=== PATIENT | male | born 1985 | race Caucasian/White ===

== ENCOUNTER 2021-03-16 08:09 | Emergency (ER) | payer BC ==
[2021-03-16 08:30] VITALS: BP 150/105; PULSE 86
--- NOTE | 2021-03-16 08:49 | EDM.PDOC ---
ED HPI GENERAL MEDICAL PROBLEM - General Chief Complaint: Abdominal Pain Stated Complaint: ABDOMINAL PAIN Time Seen by Provider: 03/16/21 08:45 Source of Information: Reports: Patient History Limitations: Reports: No Limitations - History of Present Illness INITIAL COMMENTS - FREE TEXT/NARRATIVE: pt arrived with rt cva pain. It does hurt worse when he coughes or sneezes. This has been going on for about 1 week. He is scheduled for a gastro and colonscopy for thursday. Earlier he had blood in his stool. This has stopped. Onset: Gradual Duration: Day(s): Location: Reports: Abdomen, Back Quality: Reports: Sharp Associated Symptoms: Reports: No Other Symptoms Right Lower Abdominal Pain Score (Numeric/FACES): 6 - Related Data Allergies Allergy/AdvReac Type Severity Reaction Status Date / Time No Known Allergies Allergy Verified 10/01/13 10:05 Home Meds: Home Meds Pantoprazole Sodium [Protonix] 40 mg PO BID 03/15/21 [History] Past Medical History Gastrointestinal History: Reports: Other (See Below) Other Gastrointestinal History: abd pain this admit Musculoskeletal History: Reports: Fracture, Other (See Below) Other Musculoskeletal History: broken left leg, color bone left, left arm, all fingers on both hands at different times, left foot Neurological History: Reports: Other (See Below) Other Neuro History: history of one concussion 15 years ago - Infectious Disease History Infectious Disease History: Reports: Chicken Pox - Past Surgical History GI Surgical History: Reports: Hernia, Inguinal Social & Family History - Tobacco Use Tobacco Use Status *Q: Current Every Day Tobacco User Years of Tobacco use: 15 Packs/Tins Daily: 1 ED ROS GENERAL - Review of Systems Review Of Systems: See Below Constitutional: Reports: No Symptoms HEENT: Reports: No Symptoms Respiratory: Reports: No Symptoms Cardiovascular: Reports: No Symptoms Endocrine: Reports: No Symptoms GI/Abdominal: Reports: Abdominal Pain, Other (pt had blood in the stool about 1 week ago. He did see Harlan Branham and is scheduled for a gastro and a colonoscopy for . He has continued to have mid abdomanal pain extendding from the flank area. He has no urine symptoms. ) : Reports: No Symptoms Musculoskeletal: Reports: Muscle Pain, Other (pt is very tender in the mid abdoman. 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 ) Skin: Reports: No Symptoms ED EXAM, GI/ABD - Physical Exam Exam: See Below Text/Narrative:: pt arrived with pain in the mid rt abdoman. He hurts when he moves alot worse but he does have constant pain at a 4-5. Exam Limited By: No Limitations General Appearance: Alert, Anxious, Moderate Distress Ears: Normal TMs Nose: Normal Inspection Throat/Mouth: Normal Inspection Head: Atraumatic Neck: Normal Inspection Respiratory/Chest: No Respiratory Distress Cardiovascular: Regular Rate, Rhythm GI/Abdominal Exam: Tender, Other ( pt is tender in the rt mid abdoman coming around from the flank) (Male) Exam: Deferred Rectal (Males) Exam: Deferred Back Exam: CVA Tenderness (R) Extremities: Normal Inspection Neurological: Alert, Oriented, Normal Cognition Psychiatric: Anxious Course - Vital Signs Last Recorded V/S: Last Vital Signs Temp 35.8 C L 03/16/21 08:28 Pulse 86 03/16/21 08:28 Resp 18 03/16/21 08:28 BP 150/105 H 03/16/21 08:28 Pulse Ox - Orders/Labs/Meds Orders: Active Orders 24 hr Category Date Time Status Abdomen Ltd [US] Stat Exams 03/16/21 09:32 Taken Iopamidol [Isovue-300 (61%)] Med 03/16/21 11:45 Active 150 ml IV . DIRECTED Sodium Chloride 0.9% [Normal Saline] 1,000 ml Med 03/16/21 10:15 Active IV ASDIRECTED Sodium Chloride 0.9% [Normal Saline] 80 ml Med 03/16/21 11:45 Active IV ASDIRECTED Medication Orders Sodium Chloride (Normal Saline) 1,000 mls @ 999 mls/hr IV ASDIRECTED KEYUR Last Admin: 03/16/21 10:20 Dose: 999 mls/hr Documented by: POLA Sodium Chloride (Normal Saline) 80 mls @ 3 mls/sec IV ASDIRECTED KEYUR Last Admin: 03/16/21 11:47 Dose: 3 mls/sec Documented by: EMORY Iopamidol (Iopamidol 612 Mg/Ml 150 Ml Bottle) 150 ml IV . DIRECTED KEYUR Last Admin: 03/16/21 11:48 Dose: 150 ml Documented by: EMORY Labs: Laboratory Tests 03/16/21 03/16/21 03/16/21 Range/Units 08:49 08:56 08:56 WBC 6.9 (4.5-11.0) K/uL RBC 4.72 (4.30-5.90) M/uL Hgb 15.7 H (12.0-15.0) g/dL Hct 44.4 (40.0-54.0) % MCV 94 (80-98) fL MCH 33 H (27-31) pg MCHC 35 (32-36) % Plt Count 263 (150-400) K/uL Neut % (Auto) 63.5 (36-66) % Lymph % (Auto) 24.0 (24-44) % [place] % (Auto) 9.2 H (2-6) % Eos % (Auto) 2.9 (2-4) % Baso % (Auto) 0.4 (0-1) % Sodium (140-148) mmol/L Potassium (3.6-5.2) mmol/L Chloride (100-108) mmol/L Carbon Dioxide (21-32) mmol/L Anion Gap (5.0-14.0) mmol/L BUN (7-18) mg/dL Creatinine (0.8-1.3) mg/dL Est Cr Clr Drug Dosing mL/min Estimated GFR (MDRD) (>60) Glucose (74-106) mg/dL Calcium (8.5-10.1) mg/dL Total Bilirubin (0.2-1.0) mg/dL AST (15-37) U/L ALT (12-78) U/L Alkaline Phosphatase (46-116) U/L C-Reactive Protein 0.10 (0.0-0.3) mg/dL Total Protein (6.4-8.2) g/dL Albumin (3.4-5.0) g/dL Globulin (2.3-3.5) g/dL Albumin/Globulin Ratio (1.2-2.2) Urine Color Yellow (YELLOW) Urine Appearance Clear (CLEAR) Urine pH 7.0 (5.0-8.0) Ur Specific [place] 1.025 (1.008-1.030) Urine Protein Negative (NEGATIVE) mg/dL Urine Glucose (UA) Negative (NEGATIVE) mg/dL Urine Ketones Negative (NEGATIVE) mg/dL Urine Occult Blood Negative (NEGATIVE) Urine Nitrite Negative (NEGATIVE) Urine Bilirubin Negative (NEGATIVE) Urine Urobilinogen 0.2 (0.2-1.0) EU/dL Ur Leukocyte Esterase Negative (NEGATIVE) Urine RBC Not seen (0-5) Urine WBC Not seen (0-5) Ur Epithelial Cells Occasional Amorphous Sediment Few Urine Bacteria Few Urine Mucus Few 03/16/21 Range/Units 08:56 WBC (4.5-11.0) K/uL RBC (4.30-5.90) M/uL Hgb (12.0-15.0) g/dL Hct (40.0-54.0) % MCV (80-98) fL MCH (27-31) pg MCHC (32-36) % Plt Count (150-400) K/uL Neut % (Auto) (36-66) % Lymph % (Auto) (24-44) % [place] % (Auto) (2-6) % Eos % (Auto) (2-4) % Baso % (Auto) (0-1) % Sodium 138 L (140-148) mmol/L Potassium 4.0 (3.6-5.2) mmol/L Chloride 102 (100-108) mmol/L Carbon Dioxide 24 (21-32) mmol/L Anion Gap 16.0 H (5.0-14.0) mmol/L BUN 11 (7-18) mg/dL Creatinine 0.9 (0.8-1.3) mg/dL Est Cr Clr Drug Dosing 129.47 mL/min Estimated GFR (MDRD) > 60 (>60) Glucose 103 (74-106) mg/dL Calcium 9.0 (8.5-10.1) mg/dL Total Bilirubin 0.7 (0.2-1.0) mg/dL AST 60 H D (15-37) U/L ALT 185 H (12-78) U/L Alkaline Phosphatase 93 (46-116) U/L C-Reactive Protein (0.0-0.3) mg/dL Total Protein 7.4 (6.4-8.2) g/dL Albumin 3.6 (3.4-5.0) g/dL Globulin 3.8 H (2.3-3.5) g/dL Albumin/Globulin Ratio 1.0 L (1.2-2.2) Urine Color (YELLOW) Urine Appearance (CLEAR) Urine pH (5.0-8.0) Ur Specific [place] (1.008-1.030) Urine Protein (NEGATIVE) mg/dL Urine Glucose (UA) (NEGATIVE) mg/dL Urine Ketones (NEGATIVE) mg/dL Urine Occult Blood (NEGATIVE) Urine Nitrite (NEGATIVE) Urine Bilirubin (NEGATIVE) Urine Urobilinogen (0.2-1.0) EU/dL Ur Leukocyte Esterase (NEGATIVE) Urine RBC (0-5) Urine WBC (0-5) Ur Epithelial Cells Amorphous Sediment Urine Bacteria Urine Mucus Meds: Medications Generic Name Dose Route Start Last Admin Trade Name Freq PRN Reason Stop Dose Admin Sodium Chloride 1,000 mls @ 999 mls/hr 03/16/21 10:15 03/16/21 10:20 Normal Saline IV 999 mls/hr ASDIRECTED KEYUR Administration Sodium Chloride 80 mls @ 3 mls/sec 03/16/21 11:45 03/16/21 11:47 Normal Saline IV 3 mls/sec ASDIRECTED KEYUR Administration Iopamidol 150 ml 03/16/21 11:45 03/16/21 11:48 Iopamidol 612 Mg/Ml 150 Ml Bottle IV 150 ml . DIRECTED KEYUR Administration Discontinued Medications Generic Name Dose Route Start Last Admin Trade Name Freq PRN Reason Stop Dose Admin Hydromorphone HCl 0.5 mg 03/16/21 10:09 03/16/21 10:20 Hydromorphone 0.5 Mg/0.5 Ml Syringe IVPUSH 03/16/21 10:10 0.5 mg ONETIME ONE Administration Hydromorphone HCl 0.5 mg 03/16/21 11:19 03/16/21 11:24 Hydromorphone 0.5 Mg/0.5 Ml Syringe IVPUSH 03/16/21 11:20 0.5 mg ONETIME ONE Administration Ketorolac Tromethamine 60 mg 03/16/21 09:31 03/16/21 09:38 Ketorolac 30 Mg/Ml Sdv IM 03/16/21 09:32 60 mg ONETIME ONE Administration - Re-Assessments/Exams Free Text/Narrative Re-Assessment/Exam: 03/16/21 13:04 pt had a US which showed some fatty liver chanmges. No stones in the GB. He had a cat scan of the abdoman which showed the fatty liver but no other reason for the pain Departure - Departure Time of Disposition: 12:51 Disposition: Home, Self-Care 01 Condition: Fair Clinical Impression: Abdominal muscle pain, History of GI bleed - Discharge Information Referrals: Harlan Mcclain, A[employer]IC[employer] EXTENSION EDUCATOR [Primary Care Provider] - Forms: ED Department Discharge Care Plan Goals: keep appt thursday for gastro and colonoscopy, push fluids, percocet 5/325 q6h prn for pain, follow up appt with harlan Branham Sepsis Event Note (ED) - Evaluation Sepsis Screening Result: No Definite Risk - Focused Exam Vital Signs: Vital Signs Temp Pulse Resp BP 03/16/21 08:28 35.8 C L 86 18 150/105 H - My Orders Last 24 Hours: My Active Orders 03/16/21 09:32 Abdomen Ltd [US] Stat 03/16/21 10:15 Sodium Chloride 0.9% [Normal Saline] 1,000 ml IV ASDIRECTED 03/16/21 11:45 Iopamidol [Isovue-300 (61%)] 150 ml IV . DIRECTED Sodium Chloride 0.9% [Normal Saline] 80 ml IV ASDIRECTED - Assessment/Plan Last 24 Hours: My Active Orders 03/16/21 09:32 Abdomen Ltd [US] Stat 03/16/21 10:15 Sodium Chloride 0.9% [Normal Saline] 1,000 ml IV ASDIRECTED 03/16/21 11:45 Iopamidol [Isovue-300 (61%)] 150 ml IV . DIRECTED Sodium Chloride 0.9% [Normal Saline] 80 ml IV ASDIRECTED
[2021-03-16] MEDS ORDERED: Ketorolac 30 MG/ML SDV IM ONE (09:31)
[2021-03-16] MEDS ORDERED: HYDROmorphone 0.5 MG/0.5 ML Syringe IVPUSH ONE ×2 (10:09→11:19)
[2021-03-16] MEDS ORDERED: Sodium Chloride 0.9% 1,000 ML IV SCH (10:15)
[2021-03-16] MEDS ORDERED: Iopamidol 612 MG/ML 150 ML Bottle IV SCH (11:45)
[2021-03-16] MEDS ORDERED: Sodium Chloride 0.9% 80 ML IV SCH (11:45)
--- NOTE | 2021-03-16 12:41 | CRLCT ---
For Patients: As a result of the Century Cures Act, medical imaging exams and procedure reports are released immediately into your electronic medical record. You may view this report before your referring provider. If you have questions, please contact your health care provider. INDICATION: Right-sided abdominal pain. TECHNIQUE: Volumetric helical scanning of the abdomen and pelvis was performed with 100 cc of Isovue 300 contrast material IV. Coronal and sagittal reconstructions were obtained. COMPARISON: None. FINDINGS: There is no evidence of bowel obstruction or inflammation. A normal appendix is noted. No free fluid is demonstrated. Fatty change is demonstrated in the liver. The liver is normal in size and shape. The bile ducts, spleen, adrenal glands, kidneys and pancreas are negative. No lymphadenopathy is evident. The prostate is normal. Postop changes of right inguinal herniorrhaphy are noted. The lung bases are clear, and the heart size is normal. IMPRESSION: 1. Etiology of right abdominal pain not evident. Appendix normal. 2. Fatty liver. 3. Post right inguinal herniorrhaphy. Please note that all CT scans at this facility use dose modulation, iterative reconstruction, and/or weight-based dosing when appropriate to reduce radiation dose to as low as reasonably achievable. Dictated by Dom Augustin MD @ 03/16/2021 12:38:[address] Dom Augustin @ Mar 16 2021 12:38PM
--- NOTE | 2021-03-18 09:30 | US ---
Abdomen Ltd CLINICAL HISTORY: Right-sided abdominal pain COMPARISON: CT 2016. FINDINGS: The liver is free of mass or biliary dilatation. There is mildly enlarged. There is increased parenchymal echogenicity. The gallbladder has a normal appearance. The common duct measures 5 mm. The pancreas shows no mass or inflammatory change. Right kidney has a normal appearance.The aorta is not aneurysmal. The inferior vena cava is unremarkable. IMPRESSION: Mild hepatomegaly with fatty infiltration of the liver
== END 2021-03-16 13:57 | disposition home or self-care (01) ==
LOC: JP.ED 08:09
DX: R10.9 Unspecified abdominal pain (principal); Z72.0 Tobacco use; Z87.19 Personal history of other diseases of the digestive system
CPT/HCPCS: 36415; 74177; 76705; 80053; 81001; 85025; 86140; 96372; 96374; 96376; 99284; J1170; J1885; J7030; Q9967

== ENCOUNTER 2021-03-19 07:23 | Day surgery (SDC) | payer BC ==
[2021-03-19] MEDS ORDERED: Glycopyrrolate 0.2 MG/ML 2 ML SDV IVPUSH ONE (08:00)
[2021-03-19] MEDS ORDERED: Dextrose 5%-Lactated Ringers 1,000 ML IV SCH (08:00)
[2021-03-19] MEDS ORDERED: Midazolam 1 MG/ML 2 ML SDV ONE (08:45)
[2021-03-19] MEDS ORDERED: fentaNYL 100 MCG/2 ML SDV ONE (08:45)
[2021-03-19] MEDS ORDERED: Propofol 200 MG/20 ML SDV ONE ×2 (08:46→09:57)
[2021-03-19 11:40] VITALS: BP 132/83; PULSE 72
--- NOTE | 2021-03-25 14:04 | OR ---
DATE OF PROCEDURE: 03/19/2021 SURGEON: Seven Cano MD PREOPERATIVE DIAGNOSES: 1. Epigastric discomfort and heartburn. 2. Recent episodes of bright red rectal bleeding. POSTOPERATIVE DIAGNOSES: 1. Upper gastrointestinal endoscopy showing: a. Reddened- and irritated-appearing hypopharynx and larynx. b. Gastroesophageal reflux disease with small hiatal hernia and extensive upward extension of the columnar mucosa above the upper gastric folds. c. Mild distal gastritis and duodenitis. 2. Colonoscopy showing: a. Excoriated mixed hemorrhoids likely consistent with the patient's recent bleeding. b. Single 2 mm rectal polyp. OPERATIVE PROCEDURES: 1. Esophagogastroduodenoscopy with: a. Biopsy of esophagogastric junction for histologic evaluation. b. Biopsies of antrum for CLOtest. 2. Flexible colonoscopy with polypectomy by snare technique. ANESTHESIA: IV sedation. INDICATION FOR PROCEDURE: A 36-year-old male presenting with some epigastric pain and heartburn. The patient presently is on Protonix, and despite having the above-noted symptoms, the patient also reports episodes of bright red rectal bleeding currently after moving his bowels. Plan is to proceed with upper and lower endoscopy with biopsies and/or polypectomy as indicated. Potential risks including bleeding and perforation were discussed and the patient wishes to proceed. DETAILS OF PROCEDURE: The patient was taken to the operating room and placed in a left lateral decubitus position. IV sedation was administered, after which the upper GI endoscope was passed orally through the length of the esophagus into the stomach with retroflexion view of the fundus and thereafter through the pyloric channel into the proximal duodenum. Findings included a significantly reddened and edematous hypopharynx and larynx. The upper esophageal sphincter and upper and mid esophagus unremarkable. At the EG junction, a small hiatal hernia was noted. There was significant upward extension of the columnar mucosa above the upper gastric folds. This included some areas of columnar mucosa more or less encroaching upon otherwise background of some remaining squamous type mucosa. No stricturing or plaquing were seen. Otherwise, within the stomach, there was some patchy redness in the antrum and proximal duodenum without erosions or ulcers. At this point, biopsies were obtained from the antrum and sent for CLOtest for H. pylori. Multiple biopsies were then obtained from esophagogastric junction and sent for histologic evaluation. Minimal bleeding from the biopsy site was seen. Endoscopic procedure was then concluded. Attention was taken to the colonoscopy. Initial digital rectal exam was performed which was unremarkable. Colonoscope was passed into the rectum. Retroflexion revealed some diffusely excoriated mixed hemorrhoids. None of these appeared to be appropriate for banding per se. The scope was eventually passed to the level of the cecum. The prep was very good with a small liquid stool present. The only additional pathology was that of a small polyp located roughly 10 cm from the dentate line within the rectum. Otherwise, there were no additional polyps or signs of neoplasia. No diverticula or areas of colitis. The polyp was then removed by means of snare technique and sent for histologic evaluation. Minimal bleeding from the polypectomy site was seen, and the procedure was then concluded. At this point, we asked the patient continue the recently started Protonix and see him back on 03/27/2021 to review the findings and determine whether or not any additional treatment of his gastroesophageal reflux disease would be warranted via a surgical approach and review the pathologic findings and plan with regard to followup colonoscopy. Seven Cano MD /[id number]
== END 2021-03-19 11:35 | disposition home or self-care (01) ==
LOC: JP.SDS 07:23
PROVIDERS: ATTEND Surgery
DX: K63.5 Polyp of colon (principal); K29.70 Gastritis, unspecified, without bleeding; K29.80 Duodenitis without bleeding; K21.9 Gastro-esophageal reflux disease without esophagitis; K44.9 Diaphragmatic hernia without obstruction or gangrene; K64.8 Other hemorrhoids; F17.200 Nicotine dependence, unspecified, uncomplicated; E66.9 Obesity, unspecified; Z68.36 Body mass index [BMI] 36.0-36.9, adult
CPT/HCPCS: 43239; 45385; 87081; 88305; J2250; J2704; J3010; J3490; J7121